=== PATIENT | female | born 1995 | race Caucasian/White ===

== ENCOUNTER 2018-06-22 10:02 | Emergency (ER) | payer OTHER ==
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
[2018-06-22] MEDS ORDERED: Naproxen TAB* 250 MG PO ONE (10:15)
[2018-06-22 13:08] VITALS: BP 126/84
== END 2018-06-22 13:07 | disposition home or self-care (01) ==
LOC: ED 10:02
DX: S80.02XA Contusion of left knee, initial encounter (principal); S83.92XA Sprain of unspecified site of left knee, initial encounter; S90.511A Abrasion, right ankle, initial encounter; S80.212A Abrasion, left knee, initial encounter; M54.2 Cervicalgia; V43.52XA Car driver injured in collision with other type car in traffic accident, initial encounter; Y92.410 Unspecified street and highway as the place of occurrence of the external cause
CPT/HCPCS: 72040; 99283; A9270-GY